=== PATIENT | female | born 1970 | race Two or more races ===

== ENCOUNTER → 2023-06-22 06:00 | Outpatient (CLI) | payer OTHER ==
[~2023-06-22] VITALS: Ht 175.3 cm; Wt 74.8 kg
[~2023-06-22 06:00] MED LIST: B COMPLEX1 EACH PO; CODEINE-GUAIFE120 ML PO; GILTUSS TR TAB1 EACH PO; SINGULAIR10 MG PO; ZITHROMAX200 MG PO; ZYRTEC10 M3 PO; [UNRECOGNIZED DRUG - OTHER] PO
[2023-06-22 12:34] LABS: HEMATOCRIT 39.6 % (36.0-45.00); MEAN CELL VOLUME 82.6 fL (80.00-100.00); MEAN CORPUSCULAR HEMOGLOBIN 27.2 pg (27.00-32.0); PLATELET COUNT 370 K/uL (150-450); RED CELL DISTRIBUTION WIDTH 14.7 % (11.5-14.5)
[2023-06-22 12:37] LABS: URINE APPEARANCE Clear; URINE BILIRRUBIN Negative (NEGATIVE); URINE BLOOD Negative; URINE COLOR Yellow; URINE GLUCOSE Negative (NEGATIVE); URINE LEUKOCYTE Negative; URINE NITRATE Negative; URINE PROTEIN Negative (NEGATIVE)
[2023-06-22 12:38] LABS: URINE BACTERIA 845.4 uL (0.0-1933); URINE EPITHELIAL CELLS 47.1 uL (0.0-38.8); URINE RBC 28.5 uL (0.0-20.8); URINE WBC 4.4 uL (0.0-23.2)
[2023-06-22 13:18] LABS: INR 0.98; PARTIAL THROMBOPLASTIN TIME 22.3 SECONDS (22.0-34.0); PROTHROMBIN TIME 10.3 SECONDS (9.0-11.5)
[2023-06-22 13:30] LABS: ALBUMIN 3.9 gm/dL (3.4-5.0); BILIRUBIN TOTAL 0.38 mg/dL (0.3-1.2); CALCIUM 9.2 mg/dL (8.5-10.1); CREATININE SERUM 0.82 mg/dL (0.55-1.02); GFR 73.79; GLOBULINA 3.8 G/DL (2.4-3.5); TOTAL PROTEIN 7.7 gm/dL (6.4-8.2)
== END | disposition home or self-care (01) ==
LOC: LAB 06:00 → ADM 11:45 → CIR.AMB 06-27 07:00 → EDSTATUS 06-27 11:45
PROVIDERS: ATTEND Specialist
DX: Z01.812 Encounter for preprocedural laboratory examination (principal); Z01.811 Encounter for preprocedural respiratory examination; Z01.810 Encounter for preprocedural cardiovascular examination; K80.10 Calculus of gallbladder with chronic cholecystitis without obstruction; U07.1 COVID-19

== ENCOUNTER 2023-08-08 06:16 | Day surgery (SDC) | payer OTHER | END 2023-08-08 14:10 | disposition home or self-care (01) | LOC: CIR.AMB 06:16 | PROVIDERS: ATTEND Specialist | DX: K80.10 Calculus of gallbladder with chronic cholecystitis without obstruction (principal); Z20.822 Contact with and (suspected) exposure to COVID-19 ==